=== PATIENT | female | born 1970 | race Caucasian/White ===

== ENCOUNTER 2018-06-26 10:34 | Inpatient (IN) ==
--- NOTE | 2018-06-26 06:52 | Discharge Summary ---
<Pascual Leon - Last Filed: 06/26/18 10:40> Orders not resulted at time of discharge: Pending orders 06/26/18 06:51 XR knee RT limited 1-2V [XR] Routine H/H [Hemoglobin and Hematocrit] [HEME] Routine 06/26/18 10:17 US anesthesia pain block [US] Routine Date of Encounter: 06/26/18 - Discharge Diagnosis (1) Anemia Priority: Secondary Status: Chronic Qualifiers: Anemia type: iron deficiency Iron deficiency anemia type: unspecified iron deficiency Qualified Code(s): D50.9 - Iron deficiency anemia, unspecified (2) Arthritis of knee, right Priority: Primary Status: Chronic (3) Status post total knee replacement, right Priority: Primary Status: Acute (4) Asthma Priority: Secondary Status: Chronic Qualifiers: Asthma severity: unspecified severity Asthma persistence: intermittent Asthma complication type: uncomplicated Qualified Code(s): J45.20 - Mild intermittent asthma, uncomplicated (5) COPD (chronic obstructive pulmonary disease) Priority: Secondary Status: Chronic Qualifiers: COPD type: unspecified COPD Qualified Code(s): J44.9 - Chronic obstructive pulmonary disease, unspecified (6) Depression with anxiety Priority: Secondary Status: Chronic (7) Tobacco use Priority: Secondary Status: Chronic - Hospital Course Hospital course: Ms. Montaño is a 48 year old female - Time Spent with Patient Total time spent providing and/or coordinating discharge services: - Discharge Medications Home Medications: Albuterol Neb [Proventil Neb] 2.5 mg IH TID PRN 06/26/18 [History] Albuterol Sulfate [Albuterol Inhaler] 2 puff IH Q4HR PRN 06/26/18 [History] Alendronate Sodium 70 mg PO SA 06/26/18 [History] Aspirin Enteric Coated [Aspirin EC] 325 mg PO BID #20 tablet.dr 06/26/18 [Rx] Cholecalciferol (D-3) [Vitamin D] 1,000 unit PO DAILY 06/26/18 [History] Cyclobenzaprine HCl 5 mg PO BID PRN 06/26/18 [History] Famotidine [Pepcid] 20 mg PO DAILY 06/26/18 [History] Fluticasone/Salmeterol [Advair 500-50 Diskus] 1 puff IH BID 06/26/18 [History] GuaiFENesin/Dextromethorphan [Mucinex Dm] 1 tab PO BID PRN 06/26/18 [History] Montelukast [Singulair] 10 mg PO HS 06/26/18 [History] OxyCODONE Immed Rel [Roxicodone 5 MG] 5 mg PO Q6HR PRN 7 Days #28 tablet [Rx] Tiotropium [Spiriva] 18 mcg IH 0700 06/26/18 [History] Allergies/Adverse Reactions: 3 Allergy/AdvReac Type Severity Reaction Status Date / Time aspirin [ASA] Allergy Nausea Verified 06/27/18 00:00 morphine Allergy Nausea Verified 06/27/18 00:00 Primary care physician: Wang Dobbs - Patient Status Disposition: Home Health Service - Discharge Instructions Follow Up With: Wang Dobbs [Primary Care Provider] - <Paola Levy - Last Filed: 06/28/18 10:53> - NOTES TO OUTPATIENT PROVIDER Notes to Outpatient Provider: F/up with PCP for acute on chronic anemia - 1 unit tranfused in hospital Orders not resulted at time of discharge: Pending orders 06/26/18 06:51 XR knee RT limited 1-2V [XR] Routine H/H [Hemoglobin and Hematocrit] [HEME] Routine Date of Encounter: 06/28/18 Time of Encounter: 10:46 - Discharge Diagnosis (1) Status post total knee replacement, right Priority: Primary Status: Acute Comments: Opsite dressing, leave intact until first post-operative visit. If dressing becomes >50% saturated, contact office, remove dressing and place appropriate dressing in its place. Do not allow for dressing to get wet. [place]/Zipline dressing in place, plan to remove at POD#14-16. PT: Total Joint Precautions x 6 weeks Apply ICE/cold therapy wrap 3-6x/day for 20 minutes at a time. Encourage ambulation throughout the day and incentive spirometer 10x/hour. Elevate affected extremity above heart as tolerated. Brace: Knee immobilizer at night until first post-operative appointment. (2) Arthritis of knee, right Priority: Primary Status: Chronic (3) Acute blood loss anemia Priority: Secondary Status: Acute Comments: Patient has acute on chronic blood loss anemia. She sees her PCP for this. Abnormal Labs 06/26/18 06/27/18 06/27/18 14:03 01:30 01:30 Hgb 11.1 L 9.6 L D Hct 33.1 L 29.3 L Creatinine Glucose 257 H Calcium 8.5 L Crossmatch 06/28/18 06/28/18 06/28/18 00:54 00:54 07:41 Hgb 8.1 L D Hct 23.9 L Creatinine 0.49 L Glucose 129 H Calcium 8.5 L Crossmatch See Detail Patient received 1 unit of blood prior to discharge and will f/up with her PCP for anemia f/up. Repeat H/h labs on Tuesday 07/03 (4) COPD (chronic obstructive pulmonary disease) Priority: Secondary Status: Chronic Qualifiers: COPD type: unspecified COPD Qualified Code(s): J44.9 - Chronic obstructive pulmonary disease, unspecified (5) Anemia Priority: Secondary Status: Chronic Qualifiers: Anemia type: iron deficiency Iron deficiency anemia type: unspecified iron deficiency Qualified Code(s): D50.9 - Iron deficiency anemia, unspecified (6) Tobacco use Priority: Secondary Status: Chronic (7) Asthma Priority: Secondary Status: Chronic Qualifiers: Asthma severity: unspecified severity Asthma persistence: intermittent Asthma complication type: uncomplicated Qualified Code(s): J45.20 - Mild intermittent asthma, uncomplicated (8) Depression with anxiety Priority: Secondary Status: Chronic - Hospital Course Hospital course: Ms. Montaño is a 48 year old female, s/p Right TKR 06/26 - patient had acute on chronic anemia secondary to blood loss. She received 1 unit of blood on 06/28. Stable condition for discharge. She otherwise had uneventful post-operative course. Patient will f/up with PCP for anemia, recheck labs on 07/03. She has nausea with ASA, discussed before surgery and will trial enteric coated ASA x 10 days. IF anemia worsens, will change plan postoperatively. Discharge home today in stable condition with Home health. - Time Spent with Patient Total time spent providing and/or coordinating discharge services: Date of admission: 06/26 Primary care physician: Wang Dobbs Anticipated date of discharge: 06/28/18 - Patient Status Functional capacity at discharge: uses cane/walker Overall status at discharge: patient is progressing back to baseline (Anemia)
[~2018-06-26 10:34] MED LIST: Acetaminophen IV 1,000 MG/100 ML INFUS..BTL IVPB ONE; Famotidine 20 MG/2 ML VIAL IVP ONE; Pregabalin 75 MG CAPSULE PO ONE; Ringers Solution, Lactated 1,000 ML IVC SCH
--- NOTE | 2018-06-26 10:40 | History & Physical Report ---
Date of Encounter: 06/26/18 Time of Encounter: 10:40 24 Hour HP Update - Instructions Instructions: If the History and Physical is less than 30 days old and was completed prior to A.M. admission and or procedure and has NOT been updated on calendar day of procedure please complete this update prior to performing procedure. - Update Patient reports changes in Medical Condition: No Changes in examination, assessment, or condition: No Changes in Medication: No Preop tests/diagnostics Reviewed: Yes Surgery Remains Indicated: Yes Consent for Planned Operative Procedure(s) Verified: Yes - Pre-Operative Checklist Preoperative Checklist Indicated: No Prophylactic Antibiotic Ordered: Yes Is VTE Prophylaxis Indicated?: Yes
[2018-06-26] MEDS ORDERED: Albuterol 2.5 MG/3 ML NEBULIZER IH ONE (10:51)
[2018-06-26] MEDS ORDERED: CeFAZolin Syr 2,000MG/20 ML 2,000 MG/20 ML SYRINGE IVPB ONE (10:51)
[2018-06-26] MEDS ORDERED: *HR* Midazolam HCl 2 MG/2 ML VIAL ONE ×2 (11:01→12:10)
[2018-06-26] MEDS ORDERED: *HR* FentaNYL (PF) 100 MCG/2 ML VIAL ONE (11:01)
--- NOTE | 2018-06-26 11:04 | Anesthesia Evaluation PreOp ---
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 06/26/18 [Rx] OxyCODONE Immed Rel [Roxicodone 5 MG] 5 mg PO Q6HR PRN 7 Days #28 tablet [Rx] 3 Allergy/AdvReac Type Severity Reaction Status Date / Time aspirin [ASA] Allergy Nausea Unverified 06/14/18 08:54 morphine Allergy Nausea Unverified 06/14/18 08:54 - Meds/Allergy Pre-op Review Medications Reviewed: Yes Allergies Reviewed: Yes Beta Blockers on Current Med List: No Anesthesia Results - Labs Laboratory Tests 06/14/18 06/14/18 09:10 09:10 Hgb 12.9 Hct 39.0 Plt Count 213 Sodium 141 Potassium 3.7 BUN 14 Creatinine 0.76 Anesthesia Exam O2 Sat Height 1.7 m Height 1.7 m Weight 58.967 kg Weight 58.967 kg O2 Sat by Pulse Oximetry 97 Vital Signs Temp Pulse Resp BP Pulse Ox 98.2 F 85 18 129/85 97 06/26/18 10:49 06/26/18 10:49 06/26/18 10:49 06/26/18 10:49 06/26/18 10:49 Height: 5'7 Weight: 130 lbs NPO (# of Hours): MN Pain Scale: 0 - HEENT Pupil (Motor): Pupils equal, EOMI Mallampati: II Oral Opening: Greater than 3 - METAL DRILL OPERATOR LOC: Oriented METAL DRILL OPERATOR Motor: Normal RUE, Normal LUE, Normal RLE, Normal LLE, Normal Face METAL DRILL OPERATOR Sensory: Normal: RUE, LUE, RLE, LLE, Face - Cardiac Rhythm: Regular Murmur: None JVD: No Carotid Bruit: No - Pulmonary Breath Sounds: bilateral Clear Respiratory Effort: Symmetrical Anesthesia Assess/Plan ASA Score: 3 (COPD Tobacco Asthma Anxiety) Modified [place] Scale for Level of Consciousness: Cooperative, oriented, and tranquil Anesthetic Plan: Regional, MAC Monitoring Plan: Standard Monitors Recovery Plan: PACU (Discussed SAB and Adductor Canal Block due to COPD, possible GA, agrees to proceed)
[2018-06-26] MEDS ORDERED: Lidocaine -MPF 1% 5 ML AMPUL ONE (11:06)
[2018-06-26] MEDS ORDERED: *HR* Morphine Sulfate/PF 10 MG/10 ML AMPUL ONE (11:06)
[2018-06-26] MEDS ORDERED: Ethanol\\Acetic Acid\\Na Ace\\Ben 1,000 ML IRRIG.SOLN IR ONE (11:09)
[2018-06-26] MEDS ORDERED: ROPIVACAINE HCL/PF 0.5% 30 ML VIAL ONE (11:11)
--- NOTE | 2018-06-26 11:47 | Anesthesia Procedures ---
Date of Encounter: 06/26/18 Time of Encounter: 11:35 Procedures: Anesthesia - Epidural/Spinal Patient ID/Chart reviewed: Yes Patient examined: Yes Sedation: Versed (mg): 4 Sedation: Fentanyl (mcg): 100 Site Prep: Aseptic Technique, Sterile prep and drape, 0.5% Chlorhexidine/Alcohol Patient position: upright Local Anesthetic: Lidocaine 1% Amount of Local Anesthetic used: 3 Interspace Used: L3-L4 Blood: No CSF: Yes Paresthesia: No Spinal Needle Gauge: 24 Spinal Dose: 2ml of 0.5% bupivacaine with 0.2 mg of duramorph Procedure: spinal for total knee - Nerve Block Procedure Date: 06/26/18 Time: 11:30 Allergies/Adv Reactions: ok to use duramorph 3 Allergy/AdvReac Type Severity Reaction Status Date / Time aspirin [ASA] Allergy Nausea Unverified 06/14/18 08:54 morphine Allergy Nausea Unverified 06/14/18 08:54 Pre-op Diagnosis: right knee arthritis Surgical Procedure: left total knee Checklist: Correct Patient Identifier, Correct procedure, History checked Correct side: Right Blood Thinner: No Monitor Applied: EKG, BP, Pulse Oximetry Supplemental Oxygen via Nasal Cannula (L/min): 2 Sedation: Versed (mg): 4 Sedation: Fentanyl (mcg): 100 Pre-op Neuro Deficits: No Block Type: Other (ipack) Catheter placed: No Sterile Technique: Yes Ultrasound used: Yes Anatomy identified: Yes Visual spread of Local: Yes Smooth Injection of Local: Yes Pain with Injection of Local: No Prep: Chlorhexadine Needle: 21 x 100 mm Stimuplex Local: Ropivacaine Volume (cc): 30 Number of Attempts: 1
[2018-06-26] MEDS ORDERED: Propofol 500 MG/50 ML INFUS..BTL ONE (12:10)
[2018-06-26] MEDS ORDERED: *HR* Midazolam HCl 2 MG/2 ML VIAL IVP PRN (13:17)
[2018-06-26] MEDS ORDERED: *HR* OxyCODONE Immed Rel 5 MG TABLET PO PRN (13:17)
[2018-06-26] MEDS ORDERED: *HR* Promethazine 25 MG/ML VIAL IVP PRN (13:17)
[2018-06-26] MEDS ORDERED: Albuterol 2.5 MG/3 ML NEBULIZER IH PRN ×2 (13:17→15:48)
--- NOTE | 2018-06-26 13:18 | Orthopedic Operative Note ---
Date of procedure: 06/26/18 Pre-op diagnosis: Knee arthritis right Post-op diagnosis: same Procedure: Procedure: Right robotic-assisted Total knee replacement, removal of hardware Estimated blood loss: 200 cc Hardware: Metal and polyethylene replacement. Frances Femur: 2 Tibia: 3 TS insert: 11 Patella: 36 Exam Under anesthesia: 6 degrees flexion contracture 12 degree varus as calculated by the robot full flexion and no instability Procedural Notes: Grade 4 arthritic changes all 3 compartments. Retained hardware lateral femoral condyle. This was removed Operative procedure: The patient was brought to the operating room and placed on the operating room table. After general anesthesia was administered the operative knee was examined. Findings were noted in the exam under anesthesia. The operative extremity was prepped and draped in sterile surgical fashion. The patient received IV antibiotics prior to skin incision. A standard midline incision was made centered over the patella. The incision was made through the skin and subcutaneous tissue. A medial parapatellar tendon approach was performed. Care was taken to preserve tissue along the medial aspect of the patella. And to protect the patella tendon. The deep MCL was released off the medial tibia. The infra patella fat pad was excised. The patella was everted and cut was made at the level of the insertion of the quadriceps and patella tendon. The patella was sized to a 36 the guide was seated and the lug holes are drilled. Knee was brought into flexion. Patient noted to have grade 4 arthritic changes all 3 compartments. Steinmann pins were placed in the tibia and the femur for the tibial and femoral arrays respectively. Checkpoints were also placed in the tibia and the femur for calculation purposes. The knee including the femur and the tibial registered. Osteophytes, ACL and PCL were excised at this point. Extension and flexion were assessed with a valgus stress components were adjusted on the computer to balance the knee. Femoral cuts were made first with robotic assistance, these included the anterior cut posterior cuts chamfer cuts. The femoral screw was removed without incident. Tibial cut was then performed with robotic assistance as well. Bone fragments were removed, as well as the medial and lateral meniscus. The size 2 femoral guide was seated box cut was made lug holes are drilled. The size 3 tibial tray was seated and prepared with the fin cutter. Trial reduction with the 11 TS Jade revealed extension of 0 degree and 7 degree varus full flexion. No varus valgus instability. Trial reduction revealed excellent patella tracking. All trial components were removed all bony surfaces were irrigated. The Tibia was seated followed by the femur, The Jade size 11 was seated and secured patella. Patient had similar findings for motion and stability. The knee was closed by the PA. The knee was then irrigated out with 2 L of pulse irrigation. The extensor mechanism was closed with #2 FiberWire suture and #2 PDS suture. The subcutaneous tissue was then irrigated and closed deep with #1 PDS suture superficially with 0 PDS suture and skin was closed with zip tie The patient was then placed in a sterile dressing and a postoperative brace extubated and transferred to recovery room in stable condition. Anesthesia: spinal Surgeon: Pascual Leon Was there an assistant financial accountant present: Yes Souvenir And Novelty Maker: Paola Levy Estimated blood loss (cc): 200 Condition: stable Disposition: PACU
[2018-06-26] MEDS ORDERED: Dexamethasone 4 MG/ML VIAL ONE (13:40)
[2018-06-26] MEDS ORDERED: Ondansetron 4 MG/2 ML VIAL ONE (13:40)
[2018-06-26 14:27] LABS: Hematocrit 33.1 % (35.3-44.9); Hemoglobin 11.1 g/dL (11.5-15.4)
--- NOTE | 2018-06-26 14:41 | Anesthesia Evaluation Post Op ---
Date of Encounter: 06/26/18 Time of Encounter: 14:38 - Vital Signs Vital Signs: Vital Signs/O2 Sat, Most Current Temp Pulse Resp BP Pulse Ox 98.4 F 73 16 115/73 96 06/26/18 14:19 06/26/18 14:29 06/26/18 14:29 06/26/18 14:29 06/26/18 14:29 - Lungs Lungs: Clear Ascult./Percussion - Airway Airway: Non-obstructed - Cardiovascular Regular Rate - Mental Status Mental Status: Alert & Oriented, Answers Appropriately - Pain Pain Scale: 0 Pain Scale used: Numeric (1 - 10) - Nausea Vomiting Nausea Vomiting: Not Present - Hydration Hydration: NPO - Discharge PostOp Status: Transfer Patient to floor Attestation: I have assessed this patient and find they meet discharge criteria.
[2018-06-26] MEDS ORDERED: MOM Conc 10 ML UD.LIQ PO PRN (15:48)
[2018-06-26] MEDS ORDERED: GuaiFENesin/Dextromethorphan TABLET PO PRN (15:48)
[2018-06-26] MEDS ORDERED: Naloxone 0.4 MG/ML INJ IVP PRN (15:48)
[2018-06-26] MEDS ORDERED: Ringers Solution, Lactated 1,000 ML IVC SCH (15:48)
[2018-06-26] MEDS ORDERED: Temazepam 15 MG CAPSULE PO PRN (15:48)
[2018-06-26] MEDS ORDERED: Sennosides 8.6 MG TABLET PO PRN (15:48)
[2018-06-26] MEDS ORDERED: traMADol 50 MG TABLET PO PRN (15:48)
[2018-06-26] MEDS: *HR* OxyCODONE Immed Rel 5 MG TABLET PO PRN (17:01)
[2018-06-26] MEDS: *HR* Enoxaparin 30 MG/0.3 ML SYRINGE SQ SCH (17:03)
[2018-06-26] MEDS ORDERED: *HR* Enoxaparin 30 MG/0.3 ML SYRINGE SQ SCH (18:00)
[2018-06-26] MEDS: Ondansetron 4 MG/2 ML VIAL IVP PRN (20:10)
[2018-06-26] MEDS: Budesonide/Formoterol 160/4.5 1 PUFF INH IH SCH (22:49)
[2018-06-27] MEDS: *HR* OxyCODONE Immed Rel 5 MG TABLET PO PRN ×3 (00:04→14:51)
[2018-06-27 02:12] LABS: Hematocrit 29.3 % (35.3-44.9); Hemoglobin 9.6 g/dL (11.5-15.4)
[2018-06-27 02:32] LABS: BUN/Creatinine Ratio 17 (6-26); Blood Urea Nitrogen 11 mg/dL (6-20); Calcium 8.5 mg/dL (8.6-10.3); Carbon Dioxide 27 mEq/L (23-29); Chloride 104 mEq/L (98-107); Glucose 257 mg/dL (70-105); Osmolality,Calculated 290 (280-300); Potassium 3.9 mEq/L (3.5-5.1); Sodium 136 mEq/L (136-145); eGFR For Non-African Americans > 60 (> 60)
[2018-06-27] MEDS: *HR* Enoxaparin 30 MG/0.3 ML SYRINGE SQ SCH ×2 (05:01→18:09)
[2018-06-27] MEDS: Ondansetron 4 MG/2 ML VIAL IVP PRN (05:04)
[2018-06-27] MEDS: *HR* OxyCODONE/APAP 5/325 TABLET PO PRN ×2 (05:19→20:58)
--- NOTE | 2018-06-27 06:53 | Orthopedics Progress Note ---
Date of Encounter: 06/27/18 Time of Encounter: 06:53 - Assessment and Plan (1) Anemia Current Visit: No Status: Chronic Qualifiers: Anemia type: iron deficiency Iron deficiency anemia type: unspecified iron deficiency Qualified Code(s): D50.9 - Iron deficiency anemia, unspecified (2) Arthritis of knee, right Current Visit: No Status: Chronic (3) Status post total knee replacement, right Current Visit: No Status: Acute (4) Asthma Current Visit: No Status: Chronic Qualifiers: Asthma severity: unspecified severity Asthma persistence: intermittent Asthma complication type: uncomplicated Qualified Code(s): J45.20 - Mild intermittent asthma, uncomplicated (5) COPD (chronic obstructive pulmonary disease) Current Visit: No Status: Chronic Qualifiers: COPD type: unspecified COPD Qualified Code(s): J44.9 - Chronic obstructive pulmonary disease, unspecified (6) Depression with anxiety Current Visit: No Status: Chronic (7) Tobacco use Current Visit: No Status: Chronic (8) Acute blood loss anemia Current Visit: Yes Status: Acute Subjective Interval history: Patient was seen this morning doing well without complaints. Afebrile vital signs stable. Operative extremity: Neurovascularly intact Dressing clean dry and intact Calves nontender Assessment and plan: Continue with postoperative care hematocrit 29 Objective Vital signs: Vital Signs Temp Pulse Resp BP Pulse Ox 06/27/18 06:48 97.6 F 63 15 112/62 96 06/27/18 04:33 98.3 F 78 16 122/77 97 06/26/18 23:17 97.8 F 64 17 105/69 96 06/26/18 22:49 16 96 06/26/18 20:10 96 06/26/18 19:32 97.9 F 84 16 115/73 96 06/26/18 16:50 97.6 F 68 16 124/79 98 06/26/18 15:59 94.9 F L 06/26/18 15:44 73 20 118/80 96 06/26/18 15:02 96 06/26/18 14:39 98.9 F 64 16 112/80 100 06/26/18 14:29 73 16 115/73 96 06/26/18 14:19 98.4 F 66 16 112/79 98 06/26/18 14:09 71 16 117/89 99 06/26/18 13:59 72 16 110/70 100 06/26/18 13:49 98.2 F 81 14 106/70 98 06/26/18 11:59 83 122/82 98 06/26/18 11:47 97 124/75 97 06/26/18 11:36 80 140/94 94 06/26/18 10:49 98.2 F 85 18 129/85 97 Intake and Output 06/26/18 06/26/18 06/27/18 15:59 23:59 07:59 Intake Total 500 / 500 450 / 450 Output Total 950 / 950 400 / 400 Balance -950 / -950 500 / 500 50 / 50 Intake: IV Fluids 100 / 100 Ancef 2,000 MG In 0.9 % Sodium 100 / 100 Chloride 100 ML @ 200 mls/hr IVPB Q8H BROCK Rx#:[id number] Oral 400 / 400 450 / 450 Output: Urine 750 / 750 400 / 400 Estimated Blood Loss 200 / 200 Other: # Voids 1 1 Weight 58.967 kg - Labs CBC & BMP: 06/27/18 01:30 06/27/18 01:30 Labs: Abnormal lab results Hgb 9.6 g/dL (11.5-15.4) L D 06/27/18 01:30 Hct 29.3 % (35.3-44.9) L 06/27/18 01:30 Glucose 257 mg/dL (70-105) H 06/27/18 01:30 Calcium 8.5 mg/dL (8.6-10.3) L 06/27/18 01:30 - VTE Documentation of Mechanical Device: Venous foot pump, device Consult Discharge Plan - Plan Referrals: Wang Dobbs [Primary Care Provider] -
[2018-06-27] MEDS: Budesonide/Formoterol 160/4.5 1 PUFF INH IH SCH ×2 (07:51→22:09)
[2018-06-27] MEDS: Famotidine 20 MG TABLET PO SCH (09:41)
[2018-06-27] MEDS: Cholecalciferol (D-3) 1,000 UNIT TABLET PO SCH (09:41)
[2018-06-27] MEDS: Tiotropium 18 MCG inhalation IH SCH (10:42)
[2018-06-28 01:17] LABS: Hematocrit 23.9 % (35.3-44.9); Hemoglobin 8.1 g/dL (11.5-15.4)
[2018-06-28 01:35] LABS: BUN/Creatinine Ratio 16 (6-26); Blood Urea Nitrogen 8 mg/dL (6-20); Calcium 8.5 mg/dL (8.6-10.3); Carbon Dioxide 27 mEq/L (23-29); Chloride 105 mEq/L (98-107); Glucose 129 mg/dL (70-105); Osmolality,Calculated 284 (280-300); Potassium 3.8 mEq/L (3.5-5.1); Sodium 137 mEq/L (136-145); eGFR For Non-African Americans > 60 (> 60)
[2018-06-28] MEDS: *HR* OxyCODONE/APAP 5/325 TABLET PO PRN (04:59)
[2018-06-28] MEDS: *HR* Enoxaparin 30 MG/0.3 ML SYRINGE SQ SCH (04:59)
--- NOTE | 2018-06-28 06:52 | Orthopedics Progress Note ---
Date of Encounter: 06/28/18 Time of Encounter: 06:51 - Assessment and Plan (1) Anemia Current Visit: No Status: Chronic Qualifiers: Anemia type: iron deficiency Iron deficiency anemia type: unspecified iron deficiency Qualified Code(s): D50.9 - Iron deficiency anemia, unspecified (2) Arthritis of knee, right Current Visit: No Status: Chronic (3) Status post total knee replacement, right Current Visit: No Status: Acute (4) Asthma Current Visit: No Status: Chronic Qualifiers: Asthma severity: unspecified severity Asthma persistence: intermittent Asthma complication type: uncomplicated Qualified Code(s): J45.20 - Mild intermittent asthma, uncomplicated (5) COPD (chronic obstructive pulmonary disease) Current Visit: No Status: Chronic Qualifiers: COPD type: unspecified COPD Qualified Code(s): J44.9 - Chronic obstructive pulmonary disease, unspecified (6) Depression with anxiety Current Visit: No Status: Chronic (7) Tobacco use Current Visit: No Status: Chronic (8) Acute blood loss anemia Current Visit: Yes Status: Acute Subjective Interval history: Patient was seen this morning doing well without complaints. Afebrile vital signs stable. Operative extremity: Neurovascularly intact Dressing clean dry and intact Calves nontender Assessment and plan: Continue with postoperative care hematocrit 21, transfuse 1 unit discharged today Objective Vital signs: Vital Signs Temp Pulse Resp BP Pulse Ox 06/27/18 23:14 99.5 F 90 12 142/81 92 06/27/18 22:09 14 93 06/27/18 21:00 95 06/27/18 19:14 99.4 F 93 10 114/77 95 06/27/18 16:24 98.2 F 81 16 111/64 98 06/27/18 10:51 97.9 F 72 16 118/70 97 06/27/18 10:43 16 95 06/27/18 08:38 16 95 Intake and Output 06/27/18 06/27/18 06/28/18 15:59 23:59 07:59 Intake Total 120 / 120 240 / 240 800 / 800 Output Total 1075 / 1075 450 / 450 400 / 400 Balance -955 / -955 -210 / -210 400 / 400 Intake: Oral 120 / 120 240 / 240 800 / 800 Output: Urine 1075 / 1075 450 / 450 400 / 400 Other: Meal Breakfast Dinner Percent of Meal Consumed 10% 75% # Voids 1 - Labs CBC & BMP: 06/28/18 00:54 06/28/18 00:54 Labs: Abnormal lab results Hgb 8.1 g/dL (11.5-15.4) L D 06/28/18 00:54 Hct 23.9 % (35.3-44.9) L 06/28/18 00:54 Creatinine 0.49 mg/dL (0.60-1.20) L 06/28/18 00:54 Glucose 129 mg/dL (70-105) H 06/28/18 00:54 Calcium 8.5 mg/dL (8.6-10.3) L 06/28/18 00:54 - VTE Documentation of Mechanical Device: Venous foot pump, device Consult Discharge Plan - Plan Referrals: Wang Dobbs [Primary Care Provider] -
[2018-06-28] MEDS ORDERED: Furosemide 20 MG/2 ML VIAL IVP ONE ×2 (07:08→15:30)
[2018-06-28] MEDS: Cholecalciferol (D-3) 1,000 UNIT TABLET PO SCH (07:52)
[2018-06-28] MEDS: Famotidine 20 MG TABLET PO SCH (07:53)
[2018-06-28] MEDS: *HR* OxyCODONE Immed Rel 5 MG TABLET PO PRN ×2 (07:53→12:25)
[2018-06-28] MEDS: Budesonide/Formoterol 160/4.5 1 PUFF INH IH SCH (08:20)
[2018-06-28] MEDS: Tiotropium 18 MCG inhalation IH SCH (08:23)
--- NOTE | 2018-06-28 10:55 | Physician Discharge Referral ---
Home Health/Hosp Referral Info Transfer to: Home Health Provider in Charge Post Discharge: PCP - Diagnosis (1) Status post total knee replacement, right Priority: Primary Status: Acute (2) Arthritis of knee, right Priority: Primary Status: Chronic (3) Acute blood loss anemia Priority: Primary Status: Acute (4) COPD (chronic obstructive pulmonary disease) Status: Chronic (5) Anemia Status: Chronic (6) Tobacco use Status: Chronic (7) Asthma Status: Chronic (8) Depression with anxiety Status: Chronic - Respiratory Orders None Smoking Cessation: Smoking cessation has been advised. For more information, call the [place] Tobacco Quit Line at 5-307-SEIJ-NOW. - Diet/Nutrition Diet/Nutrition Orders: Regular - Activity Activity Orders: Up ad tran, Ambulate, Walker - Services Needed Following services are medically necessary services: Nursing, Home Health Aide, Physical Therapy, Occupational Therapy Home Care Orders: Opsite dressing, leave intact until first post-operative visit. If dressing becomes >50% saturated, contact office, remove dressing and place appropriate dressing in its place. Do not allow for dressing to get wet. [place]/Zipline dressing in place, plan to remove at POD#14-16. PT: Total Joint Precautions x 6 weeks Apply ICE/cold therapy wrap 3-6x/day for 20 minutes at a time. Encourage ambulation throughout the day and incentive spirometer 10x/hour. Elevate affected extremity above heart as tolerated. Brace: Knee immobilizer at night until first post-operative appointment. REPEAT H/H ON TUESDAY 07/03 - REFERRAL TO PCP FOR ANEMIA F/UP PLEASE CALL RESULTS TO: [phone] - ATTN DOYLE NEWTON - Transfer Medications Home Medications: Albuterol Neb [Proventil Neb] 2.5 mg IH TID PRN 06/26/18 [History] Albuterol Sulfate [Albuterol Inhaler] 2 puff IH Q4HR PRN 06/26/18 [History] Alendronate Sodium 70 mg PO SA 06/26/18 [History] Aspirin Enteric Coated [Aspirin EC] 325 mg PO BID #20 tablet. 06/26/18 [Rx] Cholecalciferol (D-3) [Vitamin D] 1,000 unit PO DAILY 06/26/18 [History] Cyclobenzaprine HCl 5 mg PO BID PRN 06/26/18 [History] Famotidine [Pepcid] 20 mg PO DAILY 06/26/18 [History] Fluticasone/Salmeterol [Advair 500-50 Diskus] 1 puff IH BID 06/26/18 [History] GuaiFENesin/Dextromethorphan [Mucinex Dm] 1 tab PO BID PRN 06/26/18 [History] Montelukast [Singulair] 10 mg PO HS 06/26/18 [History] OxyCODONE Immed Rel [Roxicodone 5 MG] 5 mg PO Q6HR PRN 7 Days #28 tablet [Rx] Tiotropium [Spiriva] 18 mcg IH 0700 06/26/18 [History] Allergies/Adverse Reactions: 3 Allergy/AdvReac Type Severity Reaction Status Date / Time aspirin [ASA] Allergy Nausea Verified 06/27/18 00:00 morphine Allergy Nausea Verified 06/27/18 00:00 Certification: Further, I certify that my clinical findings support that this patient is homebound (i.e. absences from home require considerable and taxing effort and are for medical reasons or hinduism services or infrequently or short duration when for other reasons) because: Homebound Reason: Post-surgery restriction and or conditions limit ability to leave home Attestation: My signature below is to certify that this patient is under my care and that I, or nurse practitioner, or a physician's fast food assistant restaurant manager working with me, has a face-to -face encounter with this patient.
[2018-06-28] MEDS ORDERED: 0.9 % Sodium Chloride 250 ML ONE (11:47)
[2018-06-28 12:19] VITALS: BP 140/93
--- NOTE | 2018-06-28 15:55 | Event Note ---
Date of Encounter: 06/27/18 Time of Encounter: 12:00 PCR - POD#1 Patient seen at bedside, without complaints. A&O x 3 Christen placed. Afebrile, vital signs stable. Labs reviewed. H/H - stable, asymptomatic Pain control: adequate Participating in PT. All questions and concerns addressed. Educated on use of incentive spirometer. Encouraged ambulation and proper hydration. Patient educated on post-operative restrictions and post-operative care. Assessment and plan: Continue with postoperative care Discharge plan: Home on Tuesday. discharge today.
[2018-07-01] MEDS ORDERED: NON-FORMULARY MEDICATION 1 EACH EACH (Alendronate Sodium [Alendronate Sodium] 70 MG) PO SCH (11:44)
== END 2018-06-28 16:12 | disposition home health service (06) | DRG 302 ==
LOC: SAMDAY 10:34 → 3NENU 14:49
PROVIDERS: ADMIT Orthopaedic Surgery; ATTEND Orthopaedic Surgery